=== PATIENT | female | born 2005 | race Caucasian/White ===

== ENCOUNTER 2024-08-06 01:28 | Emergency (ER) | payer BC ==
[~2024-08-06] VITALS: Ht 160 cm; Wt 83.9 kg
[~2024-08-06 01:28] MED LIST: AMOXICILLI400 MG/51 PO; NO HOME MEDICATIONS
[2024-08-06 01:45] VITALS: TEMP 99.1
[2024-08-06] MEDS ORDERED: Ondansetron 4 MG/2 ML VIAL IV ONE (03:00)
[2024-08-06] MEDS ORDERED: NS 1,000 ML IV ONE (03:00)
[2024-08-06 03:21] LABS: BASO % 0.3 % (0.0-2.0); EOS # 0.1 K/mm3 (0.0-0.7); EOS % 0.9 % (0.0-4.0); GRAN % 75.3 % (42.2-75.2); HEMATOCRIT 43.7 % (35.0-45.0); HEMOGLOBIN 14.9 g/dl (12.0-15.0); LYMPH # 1.6 K/mm3 (1.2-3.4); MEAN CELL VOLUME 85 fl (80.0-95.0); MEAN CORPUSCULAR HEMOGLOBIN 29 pg (26-32); MEAN CORPUSCULAR HGB CONC 34 g/dl (33.0-37.0); MEAN PLATELET VOLUME 10.6 fl (7.4-10.4); MONO # 0.6 K/mm3 (0.1-0.6); MONO % 6.3 % (1.7-9.3); PLATELET COUNT 297 K/mm3 (130-400); RED BLOOD COUNT 5.16 M/mm3 (4.10-5.30); REDCELL DISTRIBUTION WIDTH-CV 11.9 % (11.5-14.5)
[2024-08-06 03:36] LABS: TRICYCLIC ANTIDEPRESS URINE NEGATIVE (NEGATIVE)
[2024-08-06 03:42] LABS: ALANINE AMINOTRANSFERASE 20 U/L (0-55); ALKALINE PHOSPHATASE 80 U/L (40-150); ANION GAP 12 mmol/L (7-16); AST,SGOT 15 U/L (5-34); BILIRUBIN,TOTAL 0.3 mg/dL (0.2-1.2); BLOOD UREA NITROGEN 13 mg/dL (7-19); CALCIUM 9.6 mg/dL (8.4-10.2); CHLORIDE 110 mEq/L (98-107); CREATININE, serum 0.91 mg/dL (0.57-1.11); GLUCOSE 109 mg/dL (70-99); POTASSIUM 3.8 mEq/L (3.5-4.5); SODIUM 142 mEq/L (136-145)
[2024-08-06 03:46] LABS: PH 7.5 (5.0-8.5); URINE APPEARANCE CLEAR (CLEAR/HAZY); URINE BLOOD NEGATIVE (NEGATIVE); URINE COLOR YELLOW (YELLOW); URINE GLUCOSE NEGATIVE (NEGATIVE); URINE KETONE NEGATIVE (NEGATIVE); URINE NITRATE NEGATIVE (NEGATIVE); URINE PROTEIN(semi-quant) NEGATIVE (NEGATIVE); URINE UROBILINOGEN 0.2 E.U/dL (0.2-1.0)
[2024-08-06 04:04] LABS: COLLECTION METHOD CLEAN CATCH
[2024-08-06 04:09] LABS: TROPONIN-I < 0.010 ng/mL (0.00-0.033)
[2024-08-06 04:10] LABS: TSH w REFLEX 3.549 uIU/mL (0.350-4.940)
[2024-08-06 06:02] VITALS: BP 106/63; PULSE 79
== END 2024-08-06 06:03 | disposition home or self-care (01) ==
LOC: COL.ER 01:28
PROVIDERS: Emergency Medicine
DX: R00.0 Tachycardia, unspecified (principal)
CPT/HCPCS: J2405; J7030